=== PATIENT | female | born 1950 | race Caucasian/White ===

== ENCOUNTER 2016-11-09 06:05 | Emergency (ER) | payer OTHER ==
[~2016-11-09] VITALS: Ht 162.6 cm; Wt 73.9 kg
[2016-11-09] MEDS ORDERED: METFORMIN HCL500 MG PO (06:10)
[2016-11-09] MEDS ORDERED: AMARYL2 MG PO (06:10)
[2016-11-09] MEDS ORDERED: VITAMIN D34000 UNIT PO (06:11)
[2016-11-09] MEDS ORDERED: NORCO 5-325 TA1 EACH PO (07:13)
[2016-11-09 08:00] VITALS: BP 132/86
== END 2016-11-09 08:01 | disposition home or self-care (01) ==
LOC: ER 06:05
DX: M54.89 Other dorsalgia (principal); Z90.49 Acquired absence of other specified parts of digestive tract

== ENCOUNTER → 2016-11-17 | Outpatient (CLI) | payer OTHER ==
[~2016-11-17] MED LIST: AMARYL2 MG PO; METFORMIN HCL500 MG PO; NORCO 5-325 TA1 EACH PO; VITAMIN D34000 UNIT PO
== END ==
LOC: CAT 02:05 → EDSTATUS 12:28 → CAT 12:29
PROVIDERS: Internal Medicine
DX: R10.2 Pelvic and perineal pain (principal); R10.9 Unspecified abdominal pain

== ENCOUNTER → 2017-08-07 | Outpatient (CLI) | payer OTHER | LOC: RAD 14:54 | DX: M19.012 Primary osteoarthritis, left shoulder (principal) ==

== ENCOUNTER → 2019-01-05 | Outpatient (CLI) | payer OTHER | LOC: RAD 00:57 | DX: Z12.31 Encounter for screening mammogram for malignant neoplasm of breast (principal) ==